=== PATIENT | female | born 1950 | race Caucasian/White ===

== ENCOUNTER → 2016-07-10 | Outpatient (CLI) | payer BC ==
[~2016-07-10] MED LIST: ALLEGRA 180MG180 MG PO; ASPIRIN 81M81 MG/TA2 PO; BRILINTA90 MG PO; COLACE 100100 MG/CAP PO; LIPITOR 40MG TA40 MG PO; NORVASC 10MG10 MG PO; TOPROL XL 50MG50 MG PO
== END ==
LOC: MC.RAD 12:57
DX: Z12.31 Encounter for screening mammogram for malignant neoplasm of breast (principal)

== ENCOUNTER 2019-03-20 19:54 | Emergency (ER) | payer MEDICARE ==
[~2019-03-20] VITALS: Ht 160 cm; Wt 66.8 kg
[2019-03-20] MEDS ORDERED: CLEOCIN HC150 MG/CAP PO (21:59)
[2019-03-20 22:15] VITALS: BP 132/78; PULSE 88; TEMP 98.7
== END 2019-03-20 22:17 | disposition home or self-care (01) ==
LOC: COL.ER 19:54
DX: S61.411A Laceration without foreign body of right hand, initial encounter (principal); I10 Essential (primary) hypertension; I25.10 Atherosclerotic heart disease of native coronary artery without angina pectoris; Z79.82 Long term (current) use of aspirin; W54.0XXA Bitten by dog, initial encounter

== ENCOUNTER → 2019-04-01 | Outpatient (CLI) | payer MEDICARE ==
[~2019-04-01] MED LIST changes: +CLEOCIN HC150 MG/CAP PO
[2019-04-01 14:25] VITALS: BP 148/80; PULSE 73; TEMP 98
== END ==
LOC: COL.ER 14:23
DX: S61.411D Laceration without foreign body of right hand, subsequent encounter (principal); X58.XXXD Exposure to other specified factors, subsequent encounter

== ENCOUNTER → 2019-08-24 | Outpatient (CLI) | payer MEDICARE | LOC: MC.RAD 11:41 | DX: Z12.31 Encounter for screening mammogram for malignant neoplasm of breast (principal) ==